=== PATIENT | male | born 2000 | race Caucasian/White ===

== ENCOUNTER 2022-01-24 01:23 | Emergency (ER) | payer OTHER, BC | END 2022-01-24 02:23 | disposition home or self-care (01) | LOC: CSHERS 01:23 | DX: S80.211A Abrasion, right knee, initial encounter (principal); F17.290 Nicotine dependence, other tobacco product, uncomplicated; V49.10XA Passenger injured in collision with unspecified motor vehicles in nontraffic accident, initial encounter; Y92.410 Unspecified street and highway as the place of occurrence of the external cause | CPT/HCPCS: 99281 ==